=== PATIENT | female | born 1950 | race Caucasian/White ===

== ENCOUNTER → 2018-05-29 | Outpatient (CLI) | payer MEDICARE | END | disposition home or self-care (01) | LOC: PLD 10:35 → LAB SHORT 10:35 | DX: D48.5 Neoplasm of uncertain behavior of skin (principal) | CPT/HCPCS: 88305 ==

== ENCOUNTER → 2018-08-29 | Outpatient (CLI) | payer MEDICARE | LOC: LAB SHORT 10:12 → PLD 10:12 | DX: D22.71 Melanocytic nevi of right lower limb, including hip (principal); D22.62 Melanocytic nevi of left upper limb, including shoulder | CPT/HCPCS: 88305 ==

== ENCOUNTER 2018-12-21 12:53 | Day surgery (SDC) | payer MEDICARE ==
[~2018-12-21] VITALS: Ht 157.5 cm; Wt 54.6 kg
--- NOTE | 2018-12-21 13:05 | NUR ---
Ambulatory in Day Surgery History, Chart, Medications and Allergies reviewed before start of procedure.Lungs clear T/O to Auscultation. Patient States Post-Procedure ride home has been arranged.
[2018-12-21] MEDS ORDERED: Estrace Vagin42.5 GM TOP (13:34)
[2018-12-21] MEDS ORDERED: Vitamin D2000 UNIT PO (13:35)
[2018-12-21] MEDS ORDERED: FISH OIL 500 M1 EAC1 PO (13:36)
[2018-12-21] MEDS ORDERED: CALCIUM + D SO1 EACH PO (13:36)
[2018-12-21] MEDS ORDERED: Lutein6 MG PO (13:37)
[2018-12-21] MEDS ORDERED: Collagen Plus1 EACH PO (13:37)
[2018-12-21] MEDS ORDERED: Multiple Vitam1 EAC1 PO (13:39)
--- NOTE | 2018-12-21 14:23 | NUR ---
12/21/18 1422 Minor Hartmann History, Chart, Medications and Allergies reviewed before start of procedure.MONITOR INTACT WITH CONTINUOUS PULSE OXIMETRY AND INTERMITTENT BP.3-LEAD EKG REVIEWED WITH PHYSICIAN PRIOR TO START OF PROCEDURE.O2 VIA N/C INTACT THROUGHOUT SEDATION/PROCEDURE. Patient confirms NPO status and agrees with scheduled surgery.PATIENT DETERMINED TO BE ASA APPROPRIATE FOR PROPOFOL SEDATION PRIOR TO START OF PROCEDURE BY DR. GUILLEN.
== END 2018-12-21 22:47 | disposition home or self-care (01) ==
LOC: ORSCMMR 12:53 → ORD 14:15 → ORSCMMR 14:15
PROVIDERS: Internal Medicine Gastroenterology
PROC: 0DBP8ZX Excision of Rectum, Via Natural or Artificial Opening Endoscopic, Diagnostic (ICD-10-PCS; principal; 2018-12-21 14:15)
DX: K92.1 Melena (principal); D12.8 Benign neoplasm of rectum; K59.00 Constipation, unspecified; K64.8 Other hemorrhoids
CPT/HCPCS: 88305; J2704; J7120

== ENCOUNTER → 2020-07-02 | Outpatient (CLI) | payer MEDICARE ==
[~2020-07-02] MED LIST: CALCIUM + D SO1 EACH PO; Collagen Plus1 EACH PO; Estrace Vagin42.5 GM TOP; FISH OIL 500 M1 EAC1 PO; Lutein6 MG PO; Multiple Vitam1 EAC1 PO; Vitamin D2000 UNIT PO
== END ==
LOC: PLD 14:20 → LAB SHORT 14:20
DX: D22.61 Melanocytic nevi of right upper limb, including shoulder (principal); D22.72 Melanocytic nevi of left lower limb, including hip
CPT/HCPCS: 88305